=== PATIENT | female | born 1955 | race Caucasian/White ===

== ENCOUNTER 2016-10-31 18:13 | Emergency (ER) | payer OTHER ==
[~2016-10-31] VITALS: Ht 162.6 cm; Wt 72.7 kg
[~2016-10-31 18:13] MED LIST: ALBU8HFA IH; ATOR20TA65 PO; BENZ-26 PO; FLUO40CA PO; METF500T4 PO
[2016-10-31 18:26] LABS: GLUCOSE,POINT OF CARE 115 MG/DL (70-110)
[2016-10-31 20:07] VITALS: BP 120/95
[2016-10-31] MEDS ORDERED: DIAZEPAM 5 MG TABLET PO ONE (20:15)
[2016-10-31] MEDS ORDERED: DEXAMETHASONE SOD PHOS 4 MG/ML 5 ML VIAL IM ONE (20:15)
== END 2016-10-31 20:22 | disposition home or self-care (01) ==
LOC: EMS 18:19
DX: L50.9 Urticaria, unspecified (principal); F41.9 Anxiety disorder, unspecified; E11.42 Type 2 diabetes mellitus with diabetic polyneuropathy; F32.9 Major depressive disorder, single episode, unspecified; M19.90 Unspecified osteoarthritis, unspecified site; F17.210 Nicotine dependence, cigarettes, uncomplicated; I25.10 Atherosclerotic heart disease of native coronary artery without angina pectoris; E78.00 Pure hypercholesterolemia, unspecified
CPT/HCPCS: 82962; 96372; 99283; 99406; J1100

== ENCOUNTER 2016-11-24 20:57 | Emergency (ER) | payer OTHER ==
[~2016-11-24] VITALS: Ht 160 cm; Wt 63.0 kg
[2016-11-24 21:21] LABS: GLUCOSE,POINT OF CARE 105 MG/DL (70-110)
[2016-11-25 01:12] VITALS: BP 119/77
== END 2016-11-25 01:50 | disposition home or self-care (01) ==
LOC: EMS 20:58
DX: R05 Cough (principal); I25.10 Atherosclerotic heart disease of native coronary artery without angina pectoris; E78.00 Pure hypercholesterolemia, unspecified; E11.9 Type 2 diabetes mellitus without complications; F17.210 Nicotine dependence, cigarettes, uncomplicated
CPT/HCPCS: 71020; 82962; 99284

== ENCOUNTER 2017-02-23 11:54 | Emergency (ER) | payer OTHER ==
[~2017-02-23] VITALS: Ht 160 cm; Wt 65.9 kg
[~2017-02-23 11:54] MED LIST changes: -BENZ-26 PO; +DIAZ5 PO; -METF500T4 PO; +RANO500T3 PO
[2017-02-23] MEDS ORDERED: KETOROLAC TROMETHAMINE 60 MG/2 ML VIAL IM ONE (13:30)
[2017-02-23 14:30] VITALS: BP 125/78
== END 2017-02-23 14:44 | disposition home or self-care (01) ==
LOC: EMS 11:56
DX: S13.4XXA Sprain of ligaments of cervical spine, initial encounter (principal); S80.11XA Contusion of right lower leg, initial encounter; I25.10 Atherosclerotic heart disease of native coronary artery without angina pectoris; E11.9 Type 2 diabetes mellitus without complications; E78.00 Pure hypercholesterolemia, unspecified; F17.210 Nicotine dependence, cigarettes, uncomplicated; M19.90 Unspecified osteoarthritis, unspecified site; V03.19XA Pedestrian with other conveyance injured in collision with car, pick-up truck or van in traffic accident, initial encounter; Y93.89 Activity, other specified; Y92.89 Other specified places as the place of occurrence of the external cause; Y99.8 Other external cause status
CPT/HCPCS: 72040; 96372; 99284; J1885

== ENCOUNTER 2017-05-07 00:23 | Emergency (ER) | payer OTHER ==
[~2017-05-07] VITALS: Ht 160 cm; Wt 63.6 kg
[~2017-05-07 00:23] MED LIST changes: -DIAZ5 PO
[2017-05-07 00:42] LABS: GLUCOSE,POINT OF CARE 116 MG/DL (70-110)
[2017-05-07] MEDS ORDERED: KETOROLAC TROMETHAMINE 60 MG/2 ML VIAL IM ONE (03:15)
[2017-05-07 03:40] VITALS: BP 115/68
== END 2017-05-07 03:46 | disposition home or self-care (01) ==
LOC: EMS 00:24
DX: M54.42 Lumbago with sciatica, left side (principal); G89.29 Other chronic pain; F17.210 Nicotine dependence, cigarettes, uncomplicated; I25.10 Atherosclerotic heart disease of native coronary artery without angina pectoris; E11.9 Type 2 diabetes mellitus without complications; E78.00 Pure hypercholesterolemia, unspecified
CPT/HCPCS: 82962; 96372; 99283; 99406; J1885

== ENCOUNTER 2017-07-10 22:14 | Emergency (ER) | payer OTHER ==
[~2017-07-10] VITALS: Ht 160 cm; Wt 64.5 kg
[~2017-07-10 22:14] MED LIST changes: -ALBU8HFA IH
[2017-07-10] MEDS ORDERED: ACET1TAB12 PO (22:21)
[2017-07-10] MEDS ORDERED: DOXY100C PO (22:21)
[2017-07-10] MEDS ORDERED: ALBU8HFA IH (22:21)
[2017-07-10] MEDS ORDERED: LEVALBUTEROL HCL 1.25 MG/0.5 ML NEB SOLUTION NEB ONE (22:45)
[2017-07-10] MEDS ORDERED: DEXAMETHASONE SOD PHOS 4 MG/ML 5 ML VIAL IM ONE (22:45)
[2017-07-10] MEDS ORDERED: IPRATROPIUM BROMIDE 0.5 MG/2.5 ML NEB SOLUTION NEB ONE (22:45)
[2017-07-11] MEDS ORDERED: ALBUTEROL SULFATE 2.5 MG/0.5 ML NEB SOLUTION NEB ONE (00:30)
[2017-07-11] MEDS ORDERED: HYDROCODONE/ACETAMINOPHEN 5-325 MG TABLET PO ONE (00:30)
[2017-07-11 00:43] LABS: BASOPHILS # (AUTO) 0.03 K/uL (0.00-0.20); BASOPHILS % (AUTO) 0.4 % (0.0-2.0); EOSINOPHILS % (AUTO) 2.26 % (1.0-6.0); HEMATOCRIT 39.6 % (36-46); HEMOGLOBIN 13.3 g/dL (12.0-16.0); LYMPHOCYTES # (AUTO) 4.4 K/uL (1.0-4.8); LYMPHOCYTES % (AUTO) 50.5 % (22.0-44.0); MEAN CORPUSCULAR HEMOGLOBIN 32.6 pg (26.0-34.0); MEAN CORPUSCULAR HGB CONC 33.5 G/dL (31.0-37.0); MEAN CORPUSCULAR VOLUME 97 fL (80-100); MONOCYTES # (AUTO) 0.5 K/uL (0.1-1.0); MONOCYTES % (AUTO) 5.2 % (2.0-9.0); NEUTROPHILS # (AUTO) 3.6 K/uL (1.8-7.7); NEUTROPHILS % (AUTO) 41.7 % (40.0-70.0); PLATELET COUNT (AUTO) 226 K/uL (150-450); RED BLOOD CELL COUNT(AUTO) 4.07 MIL/uL (4.00-5.20); RED CELL DISTRIBUTION WIDTH 13.8 % (11.5-14.5); WHITE BLOOD COUNT (AUTO) 8.7 K/uL (4.5-11.0)
[2017-07-11] MEDS ORDERED: 0.9% SODIUM CHLORIDE 5 ML NEB SOLUTION NEB ONE (00:49)
[2017-07-11 00:50] LABS: ANION GAP 9 mmol/L (8-16); CALCIUM, TOTAL 9.1 mg/dL (8.8-10.5); CARBON DIOXIDE 27 mmol/L (22-29); CHLORIDE 103 mmol/L (98-107); CREATININE 0.81 mg/dL (0.60-1.30); GLOMERULAR FILTR. RATE CALC > 60 mL/min (>60); POTASSIUM 3.7 mmol/L (3.5-5.1); SODIUM SERUM 139 mmol/L (136-145); UREA NITROGEN, BLOOD 14 mg/dL (7-18)
[2017-07-11 00:57] LABS: ALANINE AMINOTRANSFERASE 41 U/L (12-78); ALBUMIN 3.7 g/dL (3.4-5.0); ASPARTATE AMINOTRANSFERASE 19 U/L (15-37); BILIRUBIN,TOTAL 0.3 mg/dL (0.1-1.0); TOTAL PROTEIN, SERUM 6.9 g/dL (6.4-8.2)
[2017-07-11 03:30] VITALS: BP 114/76
[2017-07-12] MEDS ORDERED: DOXY50CA7 PO (22:35)
[2017-07-12] MEDS ORDERED: [UNRECOGNIZED DRUG - CODE] PO (22:35)
[2017-07-12] MEDS ORDERED: PRED20 PO (22:35)
== END 2017-07-11 03:21 | disposition home or self-care (01) ==
LOC: EMS 22:15
DX: J44.9 Chronic obstructive pulmonary disease, unspecified (principal); J00 Acute nasopharyngitis [common cold]; I25.10 Atherosclerotic heart disease of native coronary artery without angina pectoris; E11.9 Type 2 diabetes mellitus without complications; E78.00 Pure hypercholesterolemia, unspecified; F17.210 Nicotine dependence, cigarettes, uncomplicated
CPT/HCPCS: 36415; 71010; 80053; 84484; 85025; 93005; 94640 ×2; 96372; 99285; J1100; J7613; Z7610

== ENCOUNTER 2017-07-12 22:26 | Emergency (ER) | payer OTHER ==
[~2017-07-12] VITALS: Ht 160 cm; Wt 63.2 kg
[~2017-07-12 22:26] MED LIST changes: +ACET1TAB12 PO; +ALBU8HFA IH; +DOXY100C PO
[2017-07-12] MEDS ORDERED: DOXY50CA7 PO (22:35)
[2017-07-12] MEDS ORDERED: PRED20 PO (22:35)
[2017-07-12] MEDS ORDERED: [UNRECOGNIZED DRUG - CODE] PO (22:35)
[2017-07-12 22:54] LABS: BASOPHILS # (AUTO) 0.02 K/uL (0.00-0.20); BASOPHILS % (AUTO) 0.2 % (0.0-2.0); EOSINOPHILS # (AUTO) 0.03 K/uL (0.00-0.70); EOSINOPHILS % (AUTO) 0.23 % (1.0-6.0); HEMATOCRIT 35.8 % (36-46); HEMOGLOBIN 12.1 g/dL (12.0-16.0); LYMPHOCYTES # (AUTO) 4.2 K/uL (1.0-4.8); MEAN CORPUSCULAR HEMOGLOBIN 32.6 pg (26.0-34.0); MEAN CORPUSCULAR HGB CONC 33.7 G/dL (31.0-37.0); MEAN CORPUSCULAR VOLUME 97 fL (80-100); MONOCYTES # (AUTO) 0.5 K/uL (0.1-1.0); MONOCYTES % (AUTO) 4.3 % (2.0-9.0); NEUTROPHILS # (AUTO) 6.6 K/uL (1.8-7.7); NEUTROPHILS % (AUTO) 58.3 % (40.0-70.0); PLATELET COUNT (AUTO) 220 K/uL (150-450); RED BLOOD CELL COUNT(AUTO) 3.69 MIL/uL (4.00-5.20); RED CELL DISTRIBUTION WIDTH 13.9 % (11.5-14.5); WHITE BLOOD COUNT (AUTO) 11.4 K/uL (4.5-11.0)
[2017-07-12 23:04] LABS: ANION GAP 8 mmol/L (8-16); CALCIUM, TOTAL 8.8 mg/dL (8.8-10.5); CARBON DIOXIDE 26 mmol/L (22-29); CHLORIDE 103 mmol/L (98-107); CREATININE 0.81 mg/dL (0.60-1.30); GLOMERULAR FILTR. RATE CALC > 60 mL/min (>60); POTASSIUM 3.4 mmol/L (3.5-5.1); SODIUM SERUM 137 mmol/L (136-145); UREA NITROGEN, BLOOD 15 mg/dL (7-18)
[2017-07-12 23:07] LABS: PROTHROMBIN TIME 10.4 SEC (9.4-11.6)
[2017-07-12 23:13] LABS: APPEARANCE,URINE CLEAR (CLEAR); GLUCOSE, URINE (UA) NEGATIVE (NEGATIVE); KETONES,URINE NEGATIVE (NEGATIVE); LEUKOCYTE ESTERASE ,URINE NEGATIVE (NEGATIVE); OCCULT BLOOD,URINE SMALL (NEGATIVE); PH,URINE 6.5 (5.0-8.0); PROTEIN,URINE NEGATIVE (NEGATIVE)
[2017-07-12 23:14] LABS: ADD UA MICROSCOPIC YES
[2017-07-12 23:17] LABS: B-TYPE NATRIURETIC PEPTIDE 23 pg/mL (0-100)
[2017-07-12 23:28] LABS: ALANINE AMINOTRANSFERASE 53 U/L (12-78); ALBUMIN 3.7 g/dL (3.4-5.0); ASPARTATE AMINOTRANSFERASE 43 U/L (15-37); BILIRUBIN,TOTAL 0.4 mg/dL (0.1-1.0); CREATINE KINASE MB 1.8 ng/mL (0-5); CREATINE KINASE, TOTAL 111 U/L (26-192); TOTAL PROTEIN, SERUM 6.8 g/dL (6.4-8.2)
[2017-07-12 23:34] LABS: WBC,URINE 0-2 /HPF (0-5)
[2017-07-12 23:35] LABS: SQUAMOUS EPITHELIAL CELL,UR Rare /LPF (None Seen)
[2017-07-13 00:34] VITALS: BP 95/65
== END 2017-07-13 00:36 | disposition home or self-care (01) ==
LOC: EMS 22:28
DX: R07.9 Chest pain, unspecified (principal); E11.9 Type 2 diabetes mellitus without complications; E78.00 Pure hypercholesterolemia, unspecified; F32.9 Major depressive disorder, single episode, unspecified; F41.9 Anxiety disorder, unspecified; I25.10 Atherosclerotic heart disease of native coronary artery without angina pectoris; F17.210 Nicotine dependence, cigarettes, uncomplicated; Z90.49 Acquired absence of other specified parts of digestive tract
CPT/HCPCS: 93005; 99285

== ENCOUNTER 2017-11-11 18:05 | Emergency (ER) | payer OTHER ==
[~2017-11-11] VITALS: Ht 160 cm; Wt 63.6 kg
[~2017-11-11 18:05] MED LIST changes: -ACET1TAB12 PO; -DOXY100C PO; +DOXY50CA7 PO; +PRED20 PO; +[UNRECOGNIZED DRUG - CODE] PO
[2017-11-11] MEDS ORDERED: MONT10TA21 PO (18:10)
[2017-11-11 18:17] LABS: GLUCOSE,POINT OF CARE 218 MG/DL (70-110)
[2017-11-11] MEDS ORDERED: ASPIRIN 325 MG TABLET PO ONE (18:45)
[2017-11-11 19:18] LABS: BASOPHILS % (AUTO) 0.1 % (0.0-2.0); EOSINOPHILS % (AUTO) 0 % (1.0-6.0); HEMATOCRIT 38.4 % (36-46); LYMPHOCYTES # (AUTO) 2.8 K/uL (1.0-4.8); LYMPHOCYTES % (AUTO) 24.3 % (22.0-44.0); MEAN CORPUSCULAR HEMOGLOBIN 32.1 pg (26.0-34.0); MEAN CORPUSCULAR HGB CONC 33.9 G/dL (31.0-37.0); MEAN CORPUSCULAR VOLUME 95 fL (80-100); MONOCYTES # (AUTO) 0.7 K/uL (0.1-1.0); MONOCYTES % (AUTO) 6.3 % (2.0-9.0); NEUTROPHILS # (AUTO) 7.9 K/uL (1.8-7.7); NEUTROPHILS % (AUTO) 69.3 % (40.0-70.0); PLATELET COUNT (AUTO) 237 K/uL (150-450); RED BLOOD CELL COUNT(AUTO) 4.06 MIL/uL (4.00-5.20); RED CELL DISTRIBUTION WIDTH 13.1 % (11.5-14.5)
[2017-11-11 19:29] LABS: ANION GAP 10 mmol/L (8-16); CALCIUM, TOTAL 8.9 mg/dL (8.8-10.5); CARBON DIOXIDE 25 mmol/L (22-29); CHLORIDE 105 mmol/L (98-107); CREATININE 0.78 mg/dL (0.60-1.30); GLOMERULAR FILTR. RATE CALC > 60 mL/min (>60); GLUCOSE,RANDOM 191 mg/dL (70-110); POTASSIUM 3.6 mmol/L (3.5-5.1); SODIUM SERUM 140 mmol/L (136-145); UREA NITROGEN, BLOOD 14 mg/dL (7-18)
[2017-11-11 19:30] LABS: INR 0.9 (0.9-1.1); PROTHROMBIN TIME 9.9 SEC (9.4-11.6)
[2017-11-11 19:34] LABS: ALANINE AMINOTRANSFERASE 42 U/L (12-78); ALBUMIN 3.7 g/dL (3.4-5.0); ALKALINE PHOSPHATASE 68 U/L (46-116); ASPARTATE AMINOTRANSFERASE 14 U/L (15-37); BILIRUBIN,TOTAL 0.5 mg/dL (0.1-1.0); CREATINE KINASE, TOTAL 70 U/L (26-192); TOTAL PROTEIN, SERUM 6.9 g/dL (6.4-8.2)
[2017-11-11 19:36] LABS: B-TYPE NATRIURETIC PEPTIDE 17 pg/mL (0-100)
[2017-11-11 20:06] VITALS: BP 106/61
== END 2017-11-11 20:10 | disposition home or self-care (01) ==
LOC: EMS 18:06
DX: R07.89 Other chest pain (principal); E11.9 Type 2 diabetes mellitus without complications; I25.10 Atherosclerotic heart disease of native coronary artery without angina pectoris; E78.00 Pure hypercholesterolemia, unspecified; F17.210 Nicotine dependence, cigarettes, uncomplicated
CPT/HCPCS: 71046; 82962; 93005; 99285; 99406

== ENCOUNTER 2018-02-13 20:26 | Emergency (ER) | payer OTHER ==
[~2018-02-13] VITALS: Ht 160 cm; Wt 63.2 kg
[~2018-02-13 20:26] MED LIST changes: -FLUO40CA PO; +MONT10TA21 PO; -[UNRECOGNIZED DRUG - CODE] PO
[2018-02-13] MEDS ORDERED: CITA-106 PO (20:45)
[2018-02-13 20:48] LABS: GLUCOSE,POINT OF CARE 108 MG/DL (70-110)
[2018-02-13 21:10] LABS: BASOPHILS % (AUTO) 0.6 % (0.0-2.0); EOSINOPHILS % (AUTO) 1.6 % (1.0-6.0); HEMATOCRIT 37.3 % (36-46); LYMPHOCYTES % (AUTO) 48.4 % (22.0-44.0); MEAN CORPUSCULAR HEMOGLOBIN 33.4 pg (26.0-34.0); MEAN CORPUSCULAR VOLUME 96 fL (80-100); MONOCYTES # (AUTO) 0.5 K/uL (0.1-1.0); MONOCYTES % (AUTO) 6.6 % (2.0-9.0); NEUTROPHILS # (AUTO) 3.5 K/uL (1.8-7.7); NEUTROPHILS % (AUTO) 42.8 % (40.0-70.0); PLATELET COUNT (AUTO) 214 K/uL (150-450)
[2018-02-13 21:13] LABS: ANION GAP 8 mmol/L (8-16); CALCIUM, TOTAL 8.4 mg/dL (8.8-10.5); CARBON DIOXIDE 29 mmol/L (22-29); CHLORIDE 104 mmol/L (98-107); GLOMERULAR FILTR. RATE CALC > 60 mL/min (>60); GLUCOSE,RANDOM 97 mg/dL (70-110); POTASSIUM 3.8 mmol/L (3.5-5.1); SODIUM SERUM 141 mmol/L (136-145); UREA NITROGEN, BLOOD 10 mg/dL (7-18)
[2018-02-13 21:20] LABS: ALANINE AMINOTRANSFERASE 45 U/L (12-78); ALBUMIN 3.5 g/dL (3.4-5.0); ALKALINE PHOSPHATASE 71 U/L (46-116); ASPARTATE AMINOTRANSFERASE 25 U/L (15-37); BILIRUBIN,TOTAL 0.3 mg/dL (0.1-1.0); TOTAL PROTEIN, SERUM 6.5 g/dL (6.4-8.2)
[2018-02-14] MEDS ORDERED: DIAZEPAM 5 MG TABLET PO ONE (00:45)
[2018-02-14 02:56] VITALS: BP 104/68
== END 2018-02-14 02:58 | disposition home or self-care (01) ==
LOC: EMS 20:26
DX: R42 Dizziness and giddiness (principal); R11.0 Nausea; E11.9 Type 2 diabetes mellitus without complications; I10 Essential (primary) hypertension; E78.00 Pure hypercholesterolemia, unspecified; F41.9 Anxiety disorder, unspecified; M19.90 Unspecified osteoarthritis, unspecified site; F17.210 Nicotine dependence, cigarettes, uncomplicated; F32.9 Major depressive disorder, single episode, unspecified; Z79.899 Other long term (current) drug therapy
CPT/HCPCS: 70450; 93005; 99285

== ENCOUNTER 2018-07-22 04:17 | Emergency (ER) | payer OTHER ==
[~2018-07-22] VITALS: Ht 160 cm; Wt 65.9 kg
[~2018-07-22 04:17] MED LIST changes: +CITA-106 PO; -DOXY50CA7 PO; -PRED20 PO
[2018-07-22 04:21] VITALS: BP 143/99
[2018-07-22 05:04] LABS: APPEARANCE,URINE CLEAR (CLEAR); BILIRUBIN,URINE NEGATIVE (NEGATIVE); GLUCOSE, URINE (UA) NEGATIVE (NEGATIVE); KETONES,URINE NEGATIVE (NEGATIVE); LEUKOCYTE ESTERASE ,URINE NEGATIVE (NEGATIVE); NITRATE,URINE NEGATIVE (NEGATIVE); OCCULT BLOOD,URINE MODERATE (NEGATIVE); PH,URINE 6.5 (5.0-8.0); PROTEIN,URINE NEGATIVE (NEGATIVE); UROBILINOGEN,URINE 0.2 mg/dL (<=1.0)
[2018-07-22 05:26] LABS: BACTERIA,URINE None Seen /HPF (None Seen); WBC,URINE 0-2 /HPF (0-5)
[2018-07-22 05:27] LABS: SQUAMOUS EPITHELIAL CELL,UR Moderate /LPF (None Seen)
== END 2018-07-22 06:31 | disposition home or self-care (01) ==
LOC: EMS 04:18
DX: N39.0 Urinary tract infection, site not specified (principal); E11.9 Type 2 diabetes mellitus without complications; E78.00 Pure hypercholesterolemia, unspecified; J40 Bronchitis, not specified as acute or chronic; I25.10 Atherosclerotic heart disease of native coronary artery without angina pectoris; F41.9 Anxiety disorder, unspecified; F17.210 Nicotine dependence, cigarettes, uncomplicated; Z79.899 Other long term (current) drug therapy; Z88.5 Allergy status to narcotic agent; Z88.1 Allergy status to other antibiotic agents

== ENCOUNTER 2018-11-13 23:54 | Emergency (ER) | payer OTHER ==
[~2018-11-13] VITALS: Ht 160 cm; Wt 65.5 kg
[2018-11-14] MEDS ORDERED: GABA-531 PO (00:18)
[2018-11-14 00:21] LABS: GLUCOSE,POINT OF CARE 138 MG/DL (70-110)
[2018-11-14 02:29] VITALS: BP 95/61
[2018-11-14] MEDS ORDERED: KETOROLAC TROMETHAMINE 60 MG/2 ML VIAL IM ONE (02:45)
== END 2018-11-14 02:57 | disposition home or self-care (01) ==
LOC: EMS 23:58
DX: M54.5 Low back pain (principal); I25.10 Atherosclerotic heart disease of native coronary artery without angina pectoris; E11.9 Type 2 diabetes mellitus without complications; E78.00 Pure hypercholesterolemia, unspecified; F41.9 Anxiety disorder, unspecified; M19.90 Unspecified osteoarthritis, unspecified site; F17.210 Nicotine dependence, cigarettes, uncomplicated; Z90.49 Acquired absence of other specified parts of digestive tract; Z88.5 Allergy status to narcotic agent; Z88.1 Allergy status to other antibiotic agents
CPT/HCPCS: 82962; 96372; 99283; J1885

== ENCOUNTER 2019-02-08 22:41 | Inpatient (IN) | payer OTHER ==
[~2019-02-08] VITALS: Ht 160 cm; Wt 66.3 kg
[~2019-02-08 22:41] MED LIST changes: +GABA-531 PO; -RANO500T3 PO
[2019-02-08 22:54] LABS: GLUCOSE,POINT OF CARE 139 MG/DL (70-110)
[2019-02-08 23:28] LABS: BASOPHILS % (AUTO) 0.3 % (0.0-2.0); HEMATOCRIT 38.5 % (36-46); HEMOGLOBIN 13.1 g/dL (12.0-16.0); LYMPHOCYTES # (AUTO) 4.3 K/uL (1.0-4.8); LYMPHOCYTES % (AUTO) 43.8 % (22.0-44.0); MEAN CORPUSCULAR HEMOGLOBIN 33.4 pg (26.0-34.0); MEAN CORPUSCULAR HGB CONC 34.1 G/dL (31.0-37.0); MEAN CORPUSCULAR VOLUME 98 fL (80-100); MONOCYTES # (AUTO) 0.6 K/uL (0.1-1.0); MONOCYTES % (AUTO) 5.8 % (2.0-9.0); NEUTROPHILS # (AUTO) 4.7 K/uL (1.8-7.7); NEUTROPHILS % (AUTO) 48.1 % (40.0-70.0); PLATELET COUNT (AUTO) 237 K/uL (150-450); RED BLOOD CELL COUNT(AUTO) 3.93 MIL/uL (4.00-5.20); RED CELL DISTRIBUTION WIDTH 13.5 % (11.5-14.5)
[2019-02-08 23:39] LABS: ANION GAP 7 mmol/L (8-16); CALCIUM, TOTAL 9.5 mg/dL (8.8-10.5); CARBON DIOXIDE 28 mmol/L (22-29); CHLORIDE 104 mmol/L (98-107); CREATININE 0.74 mg/dL (0.60-1.30); GLOMERULAR FILTR. RATE CALC > 60 mL/min (>60); GLUCOSE,RANDOM 138 mg/dL (70-110); POTASSIUM 3.7 mmol/L (3.5-5.1); SODIUM SERUM 139 mmol/L (136-145); UREA NITROGEN, BLOOD 14 mg/dL (7-18)
[2019-02-08 23:46] LABS: ALANINE AMINOTRANSFERASE 33 U/L (12-78); ALBUMIN 3.4 g/dL (3.4-5.0); ALKALINE PHOSPHATASE 74 U/L (46-116); ASPARTATE AMINOTRANSFERASE 23 U/L (15-37); BILIRUBIN,TOTAL 0.3 mg/dL (0.1-1.0); TOTAL PROTEIN, SERUM 6.8 g/dL (6.4-8.2)
[2019-02-09] MEDS ORDERED: ONDANSETRON HCL 4 MG/2 ML VIAL IVP ONE (01:15)
[2019-02-09] MEDS ORDERED: MORPHINE SULFATE 2 MG/ML SYRINGE IVP ONE (01:15)
[2019-02-09] MEDS ORDERED: ASPIRIN 325 MG TABLET PO ONE (01:15)
[2019-02-09] MEDS ORDERED: MORPHINE SULFATE 4 MG/ML SYRINGE IVP ONE (01:30)
[2019-02-09] MEDS ORDERED: NITROGLYCERIN 2% (1 GM=INCH) PACKET TP ONE (04:00)
[2019-02-09] MEDS ORDERED: IPRATROPIUM BROMIDE 0.5 MG/2.5 ML NEB SOLUTION NEB PRN (07:00)
[2019-02-09] MEDS ORDERED: ONDANSETRON HCL 4 MG/2 ML VIAL IVP PRN (07:00)
[2019-02-09] MEDS ORDERED: 0.9% SODIUM CHLORIDE 10 ML SYRINGE IVP PRN (07:00)
[2019-02-09] MEDS ORDERED: INSULIN LISPRO 100 UNITS/ML SQ PRN (07:00)
[2019-02-09] MEDS ORDERED: ALBUTEROL SULFATE 2.5 MG/0.5 ML NEB SOLUTION NEB PRN (07:00)
[2019-02-09] MEDS ORDERED: DEXTROSE 50%-WATER 25 GM/50 ML SYRINGE IVP PRN (07:00)
[2019-02-09] MEDS ORDERED: ZOLPIDEM TARTRATE 5 MG TABLET PO PRN (07:00)
[2019-02-09] MEDS: ALBUTEROL SULFATE 2.5 MG/0.5 ML NEB SOLUTION NEB SCH ×2 (08:31→20:31)
[2019-02-09] MEDS: IPRATROPIUM BROMIDE 0.5 MG/2.5 ML NEB SOLUTION NEB SCH ×2 (08:31→20:31)
[2019-02-09] MEDS: CITALOPRAM HYDROBROMIDE 20 MG TABLET PO SCH (08:44)
[2019-02-09] MEDS: HEPARIN SODIUM,PORCINE 5,000 UNITS/ML VIAL SQ SCH ×2 (08:44→18:24)
[2019-02-09] MEDS: MONTELUKAST SODIUM 10 MG TABLET PO SCH (08:45)
[2019-02-09] MEDS: PANTOPRAZOLE SODIUM 40 MG DR TABLET PO SCH (08:45)
[2019-02-09 13:24] LABS: GLUCOSE,POINT OF CARE 127 MG/DL (70-110)
[2019-02-09 15:00] VITALS: BP 110/53
[2019-02-09 19:30] VITALS: BP 98/62
[2019-02-09 19:55] LABS: GLUCOMETER DEV NAME(LOC) 5S.1; GLUCOSE,POINT OF CARE 151 MG/DL (70-110)
[2019-02-09] MEDS ORDERED: ATORVASTATIN CALCIUM 20 MG TABLET PO SCH (21:00)
[2019-02-09 23:29] VITALS: BP 99/70
[2019-02-10] MEDS: ALBUTEROL SULFATE 2.5 MG/0.5 ML NEB SOLUTION NEB SCH ×3 (02:00→13:32)
[2019-02-10] MEDS: IPRATROPIUM BROMIDE 0.5 MG/2.5 ML NEB SOLUTION NEB SCH ×3 (02:00→13:32)
[2019-02-10] MEDS: HEPARIN SODIUM,PORCINE 5,000 UNITS/ML VIAL SQ SCH ×3 (02:13→16:00)
[2019-02-10 04:41] VITALS: BP 97/61
[2019-02-10] MEDS: PANTOPRAZOLE SODIUM 40 MG DR TABLET PO SCH (07:54)
[2019-02-10] MEDS: CITALOPRAM HYDROBROMIDE 20 MG TABLET PO SCH (07:54)
[2019-02-10] MEDS: MONTELUKAST SODIUM 10 MG TABLET PO SCH (07:54)
[2019-02-10 08:10] VITALS: BP 97/64
[2019-02-10 12:11] VITALS: BP 93/66
[2019-02-10 14:28] LABS: BASOPHILS % (AUTO) 0.4 % (0.0-2.0); EOSINOPHILS % (AUTO) 0.7 % (1.0-6.0); HEMATOCRIT 37.8 % (36-46); HEMOGLOBIN 12.6 g/dL (12.0-16.0); MEAN CORPUSCULAR HEMOGLOBIN 32.9 pg (26.0-34.0); MEAN CORPUSCULAR HGB CONC 33.3 G/dL (31.0-37.0); MEAN CORPUSCULAR VOLUME 99 fL (80-100); MONOCYTES # (AUTO) 0.7 K/uL (0.1-1.0); MONOCYTES % (AUTO) 6.6 % (2.0-9.0); NEUTROPHILS # (AUTO) 6.5 K/uL (1.8-7.7); NEUTROPHILS % (AUTO) 57.3 % (40.0-70.0); PLATELET COUNT (AUTO) 218 K/uL (150-450); RED BLOOD CELL COUNT(AUTO) 3.83 MIL/uL (4.00-5.20); RED CELL DISTRIBUTION WIDTH 13.6 % (11.5-14.5)
[2019-02-10 14:40] LABS: ANION GAP 8 mmol/L (8-16); CARBON DIOXIDE 28 mmol/L (22-29); CHLORIDE 104 mmol/L (98-107); CREATININE 0.88 mg/dL (0.60-1.30); GLUCOSE,RANDOM 116 mg/dL (70-110); POTASSIUM 3.8 mmol/L (3.5-5.1); SODIUM SERUM 140 mmol/L (136-145); UREA NITROGEN, BLOOD 16 mg/dL (7-18)
[2019-02-10 14:41] LABS: CALCIUM, TOTAL 8.8 mg/dL (8.8-10.5); GLOMERULAR FILTR. RATE CALC > 60 mL/min (>60)
[2019-02-10 14:46] LABS: ALANINE AMINOTRANSFERASE 39 U/L (12-78); ALBUMIN 3.2 g/dL (3.4-5.0); ALKALINE PHOSPHATASE 71 U/L (46-116); ASPARTATE AMINOTRANSFERASE 20 U/L (15-37); BILIRUBIN,TOTAL 0.4 mg/dL (0.1-1.0); TOTAL PROTEIN, SERUM 6.3 g/dL (6.4-8.2)
[2019-02-10 15:15] VITALS: BP 111/70
[2019-02-10 19:50] LABS: GLUCOMETER DEV NAME(LOC) 5N.1; GLUCOSE,POINT OF CARE 149 MG/DL (70-110)
[2019-02-10 19:50] LABS: GLUCOMETER DEV NAME(LOC) 5N.1; GLUCOSE,POINT OF CARE 128 MG/DL (70-110)
[2019-02-10 22:55] LABS: GLUCOMETER DEV NAME(LOC) 5S.1; GLUCOSE,POINT OF CARE 126 MG/DL (70-110)
[2019-02-10 22:55] LABS: GLUCOMETER DEV NAME(LOC) 5S.2A; GLUCOSE,POINT OF CARE 115 MG/DL (70-110)
== END 2019-02-10 18:30 | disposition home or self-care (01) | DRG 198 ==
LOC: EMS 22:42 → 5S 02-09 12:30 → EMS 02-09 14:12
PROVIDERS: ADMIT Internal Medicine; ATTEND Internal Medicine
DX: I25.119 Atherosclerotic heart disease of native coronary artery with unspecified angina pectoris (principal); E11.9 Type 2 diabetes mellitus without complications; E78.00 Pure hypercholesterolemia, unspecified; F32.9 Major depressive disorder, single episode, unspecified; J40 Bronchitis, not specified as acute or chronic; J44.9 Chronic obstructive pulmonary disease, unspecified; M19.90 Unspecified osteoarthritis, unspecified site; F17.210 Nicotine dependence, cigarettes, uncomplicated; Z90.49 Acquired absence of other specified parts of digestive tract; F41.9 Anxiety disorder, unspecified; Z83.3 Family history of diabetes mellitus; Z82.49 Family history of ischemic heart disease and other diseases of the circulatory system; Z88.6 Allergy status to analgesic agent; Z88.1 Allergy status to other antibiotic agents
CPT/HCPCS: 93005; 93306; 94640; G0378; J1644; J2270; J2405

== ENCOUNTER 2019-04-29 19:08 | Emergency (ER) | payer SELFPAY ==
[~2019-04-29] VITALS: Ht 160 cm; Wt 63.6 kg
[~2019-04-29 19:08] MED LIST changes: -GABA-531 PO
[2019-04-29 19:41] LABS: GLUCOSE,POINT OF CARE 142 MG/DL (70-110)
[2019-04-29] MEDS ORDERED: FLUO-125 PO (20:35)
[2019-04-29] MEDS ORDERED: CITA10TA68 PO (20:35)
[2019-04-29] MEDS ORDERED: AMIT25TA9 PO (20:35)
[2019-04-29 21:53] LABS: BASOPHILS % (AUTO) 0.4 % (0.0-2.0); HEMATOCRIT 39.5 % (36-46); HEMOGLOBIN 13.5 g/dL (12.0-16.0); LYMPHOCYTES # (AUTO) 3.8 K/uL (1.0-4.8); LYMPHOCYTES % (AUTO) 46.5 % (22.0-44.0); MEAN CORPUSCULAR HEMOGLOBIN 33.4 pg (26.0-34.0); MEAN CORPUSCULAR HGB CONC 34.2 G/dL (31.0-37.0); MEAN CORPUSCULAR VOLUME 98 fL (80-100); MONOCYTES # (AUTO) 0.6 K/uL (0.1-1.0); MONOCYTES % (AUTO) 7.1 % (2.0-9.0); NEUTROPHILS # (AUTO) 3.6 K/uL (1.8-7.7); PLATELET COUNT (AUTO) 253 K/uL (150-450); RED BLOOD CELL COUNT(AUTO) 4.05 MIL/uL (4.00-5.20); RED CELL DISTRIBUTION WIDTH 13.2 % (11.5-14.5)
[2019-04-29 21:59] LABS: ANION GAP 14 mmol/L (8-16); CALCIUM, TOTAL 9.3 mg/dL (8.8-10.5); CARBON DIOXIDE 26 mmol/L (22-29); CHLORIDE 103 mmol/L (98-107); GLOMERULAR FILTR. RATE CALC > 60 mL/min (>60); GLUCOSE,RANDOM 108 mg/dL (70-110); SODIUM SERUM 143 mmol/L (136-145); UREA NITROGEN, BLOOD 11 mg/dL (7-18)
[2019-04-29 22:01] LABS: APPEARANCE,URINE CLEAR (CLEAR); BILIRUBIN,URINE NEGATIVE (NEGATIVE); GLUCOSE, URINE (UA) NEGATIVE (NEGATIVE); KETONES,URINE NEGATIVE (NEGATIVE); LEUKOCYTE ESTERASE ,URINE TRACE (NEGATIVE); NITRATE,URINE NEGATIVE (NEGATIVE); OCCULT BLOOD,URINE SMALL (NEGATIVE); PROTEIN,URINE NEGATIVE (NEGATIVE); UROBILINOGEN,URINE 0.2 mg/dL (<=1.0)
[2019-04-29 22:06] LABS: ALANINE AMINOTRANSFERASE 33 U/L (12-78); ALBUMIN 3.8 g/dL (3.4-5.0); ALKALINE PHOSPHATASE 77 U/L (46-116); ASPARTATE AMINOTRANSFERASE 23 U/L (15-37); BILIRUBIN,TOTAL 0.6 mg/dL (0.1-1.0)
[2019-04-29 22:10] LABS: INR 0.9 (0.9-1.1); PROTHROMBIN TIME 9.5 SEC (9.4-11.6)
[2019-04-29 22:11] LABS: BACTERIA,URINE Few /HPF (None Seen); RBC,URINE 0-2 /HPF (0-2); SQUAMOUS EPITHELIAL CELL,UR Few /LPF (None Seen)
[2019-04-29 22:14] LABS: B-TYPE NATRIURETIC PEPTIDE < 5 pg/mL (0-100)
[2019-04-30 02:24] VITALS: BP 109/68
== END 2019-04-30 02:27 | disposition home or self-care (01) ==
LOC: EMS 19:10
DX: R07.9 Chest pain, unspecified (principal); R06.02 Shortness of breath; E78.00 Pure hypercholesterolemia, unspecified; E11.9 Type 2 diabetes mellitus without complications; I25.10 Atherosclerotic heart disease of native coronary artery without angina pectoris; J44.9 Chronic obstructive pulmonary disease, unspecified; F32.9 Major depressive disorder, single episode, unspecified; F41.9 Anxiety disorder, unspecified; F17.210 Nicotine dependence, cigarettes, uncomplicated; Z88.5 Allergy status to narcotic agent; Z88.1 Allergy status to other antibiotic agents; Z79.899 Other long term (current) drug therapy
CPT/HCPCS: 93005; 99406

== ENCOUNTER 2019-10-24 09:27 | Emergency (ER) | payer OTHER ==
[~2019-10-24] VITALS: Ht 160 cm; Wt 64.5 kg
[~2019-10-24 09:27] MED LIST changes: +AMIT25TA9 PO; +CITA10TA68 PO; +FLUO10CA23 PO
[2019-10-24] MEDS ORDERED: OMEP20CA12 PO (09:38)
[2019-10-24] MEDS ORDERED: METF-960 PO (09:38)
[2019-10-24] MEDS ORDERED: RANO500T3 PO (09:38)
[2019-10-24 11:19] VITALS: BP 110/77
== END 2019-10-24 11:22 | disposition home or self-care (01) ==
LOC: EMS 09:30
DX: R05 Cough (principal); F41.9 Anxiety disorder, unspecified; I25.10 Atherosclerotic heart disease of native coronary artery without angina pectoris; J44.9 Chronic obstructive pulmonary disease, unspecified; F32.9 Major depressive disorder, single episode, unspecified; E11.9 Type 2 diabetes mellitus without complications; E78.00 Pure hypercholesterolemia, unspecified; F17.210 Nicotine dependence, cigarettes, uncomplicated; Z88.5 Allergy status to narcotic agent; Z88.1 Allergy status to other antibiotic agents; Z79.84 Long term (current) use of oral hypoglycemic drugs; Z03.818 Encounter for observation for suspected exposure to other biological agents ruled out
CPT/HCPCS: 87635

== ENCOUNTER 2019-12-09 14:08 | Emergency (ER) | payer OTHER ==
[~2019-12-09] VITALS: Ht 160 cm; Wt 63.6 kg
[~2019-12-09 14:08] MED LIST changes: -CITA-106 PO; +CITA-144 PO; -CITA10TA68 PO; +CITA10TA99 PO; +METF-960 PO; +OMEP20CA12 PO; +RANO500T3 PO
[2019-12-09] MEDS ORDERED: KETOROLAC TROMETHAMINE 30 MG/ML VIAL IM ONE (14:45)
[2019-12-09] MEDS ORDERED: CYCLOBENZAPRINE HCL 10 MG TABLET PO ONE (14:45)
[2019-12-09] MEDS ORDERED: LIDOCAINE 5% TRANSDERMAL PATCH TD ONE (14:45)
[2019-12-09 14:53] LABS: GLUCOSE,POINT OF CARE 178 MG/DL (70-110)
[2019-12-09 16:19] VITALS: BP 123/76
== END 2019-12-09 16:29 | disposition home or self-care (01) ==
LOC: EMS 14:14
DX: M54.42 Lumbago with sciatica, left side (principal); I25.10 Atherosclerotic heart disease of native coronary artery without angina pectoris; F41.9 Anxiety disorder, unspecified; J44.9 Chronic obstructive pulmonary disease, unspecified; F32.9 Major depressive disorder, single episode, unspecified; E11.9 Type 2 diabetes mellitus without complications; E78.00 Pure hypercholesterolemia, unspecified; F17.210 Nicotine dependence, cigarettes, uncomplicated; Z88.5 Allergy status to narcotic agent; Z90.89 Acquired absence of other organs
CPT/HCPCS: 82962; 96372; 99283; J1885

== ENCOUNTER 2020-02-07 16:58 | Emergency (ER) | payer OTHER ==
[~2020-02-07] VITALS: Ht 167.6 cm; Wt 77.3 kg
[~2020-02-07 16:58] MED LIST changes: -AMIT25TA9 PO; -FLUO10CA23 PO; -METF-960 PO; -RANO500T3 PO
[2020-02-07 17:59] LABS: BASOPHILS % (AUTO) 0.7 % (0.0-2.0); EOSINOPHILS % (AUTO) 0.2 % (1.0-6.0); HEMOGLOBIN 13.7 g/dL (12.0-16.0); LYMPHOCYTES # (AUTO) 1.1 K/uL (1.0-4.8); LYMPHOCYTES % (AUTO) 13.7 % (22.0-44.0); MEAN CORPUSCULAR HEMOGLOBIN 32.9 pg (26.0-34.0); MEAN CORPUSCULAR HGB CONC 34.2 G/dL (31.0-37.0); MEAN CORPUSCULAR VOLUME 96 fL (80-100); MONOCYTES # (AUTO) 0.3 K/uL (0.1-1.0); MONOCYTES % (AUTO) 4.1 % (2.0-9.0); NEUTROPHILS # (AUTO) 6.6 K/uL (1.8-7.7); NEUTROPHILS % (AUTO) 81.3 % (40.0-70.0); PLATELET COUNT (AUTO) 214 K/uL (150-450); RED BLOOD CELL COUNT(AUTO) 4.16 MIL/uL (4.00-5.20); RED CELL DISTRIBUTION WIDTH 13.2 % (11.5-14.5)
[2020-02-07 18:21] LABS: ANION GAP 8 mmol/L (8-16); CALCIUM, TOTAL 8.4 mg/dL (8.8-10.5); CARBON DIOXIDE 27 mmol/L (22-29); CHLORIDE 103 mmol/L (98-107); CREATININE 0.88 mg/dL (0.60-1.30); GLOMERULAR FILTR. RATE CALC > 60 mL/min (>60); GLUCOSE,RANDOM 151 mg/dL (70-110); POTASSIUM 3.4 mmol/L (3.5-5.1); SODIUM SERUM 138 mmol/L (136-145); UREA NITROGEN, BLOOD 12 mg/dL (7-18)
[2020-02-07 18:26] LABS: ALANINE AMINOTRANSFERASE 51 U/L (12-78); ALBUMIN 3.5 g/dL (3.4-5.0); ALKALINE PHOSPHATASE 75 U/L (46-116); ASPARTATE AMINOTRANSFERASE 26 U/L (15-37); BILIRUBIN,TOTAL 0.6 mg/dL (0.1-1.0); LIPASE 100 U/L (73-393); TOTAL PROTEIN, SERUM 7.1 g/dL (6.4-8.2)
[2020-02-07] MEDS ORDERED: DEXAMETHASONE 4 MG TABLET PO ONE (20:15)
[2020-02-07 21:25] LABS: APPEARANCE,URINE CLEAR (CLEAR); BILIRUBIN,URINE NEGATIVE (NEGATIVE); GLUCOSE, URINE (UA) NEGATIVE (NEGATIVE); KETONES,URINE NEGATIVE (NEGATIVE); LEUKOCYTE ESTERASE ,URINE SMALL (NEGATIVE); NITRATE,URINE NEGATIVE (NEGATIVE); OCCULT BLOOD,URINE SMALL (NEGATIVE); PROTEIN,URINE NEGATIVE (NEGATIVE)
[2020-02-07 21:34] LABS: BACTERIA,URINE None Seen /HPF (None Seen)
[2020-02-07 21:35] LABS: SQUAMOUS EPITHELIAL CELL,UR Moderate /LPF (None Seen)
[2020-02-07 21:45] VITALS: BP 116/73
== END 2020-02-07 21:45 | disposition home or self-care (01) ==
LOC: EMS 16:58
DX: J02.9 Acute pharyngitis, unspecified (principal); R05 Cough; R10.9 Unspecified abdominal pain; R42 Dizziness and giddiness; R11.0 Nausea; F41.9 Anxiety disorder, unspecified; I25.10 Atherosclerotic heart disease of native coronary artery without angina pectoris; J44.9 Chronic obstructive pulmonary disease, unspecified; F32.9 Major depressive disorder, single episode, unspecified; E11.9 Type 2 diabetes mellitus without complications; E78.00 Pure hypercholesterolemia, unspecified; F17.210 Nicotine dependence, cigarettes, uncomplicated; Z20.828 Contact with and (suspected) exposure to other viral communicable diseases; Z90.89 Acquired absence of other organs; Z88.5 Allergy status to narcotic agent
CPT/HCPCS: 36415; 80053; 81001; 83690; 84484; 85025; 87430; 93005; 99284; J8540; U0003

== ENCOUNTER 2020-07-20 06:09 | Day surgery (SDC) | payer OTHER ==
[2020-07-17 13:01] LABS: COVID AG,FIA SOURCE NASOPHARYNGEAL
[~2020-07-20] VITALS: Ht 160 cm; Wt 68.0 kg
[~2020-07-20 06:09] MED LIST changes: +MONT-35 PO; -MONT10TA21 PO; +SODIUM CHLORIDE 0.9% 1,000 ML ONE
[2020-07-20] MEDS ORDERED: BENZOCAINE 20% 50 MCG/SPRAY 57 GM TP ONE (06:10)
[2020-07-20] MEDS ORDERED: LIDOCAINE 4% 50 ML SOLUTION TP ONE (06:10)
[2020-07-20] MEDS ORDERED: LIDOCAINE 2% 30 ML JELLY TP ONE (06:10)
[2020-07-20] MEDS ORDERED: ALBUTEROL SULFATE 2.5 MG/0.5 ML NEB SOLUTION NEB ONE (06:10)
[2020-07-20] MEDS: SODIUM CHLORIDE 0.9% 1,000 ML IV ONE (07:10)
[2020-07-20] MEDS ORDERED: MIDAZOLAM HCL 2 MG/2 ML VIAL ONE (07:19)
[2020-07-20] MEDS ORDERED: FentaNYL CITRATE-PF 100 MCG/2 ML VIAL ONE (07:19)
[2020-07-20] MEDS ORDERED: PREDAOS OS (07:21)
[2020-07-20] MEDS ORDERED: DULO30CA96 PO (07:21)
[2020-07-20] MEDS ORDERED: ATOR40TA71 PO (07:21)
[2020-07-20] MEDS ORDERED: KETO.5OS OS (07:21)
[2020-07-20] MEDS ORDERED: MOXI3DRO12 OS (07:21)
[2020-07-20] MEDS ORDERED: MethylPREDNISolone SOD SUCC 125 MG/2 ML VIAL ONE ×2 (09:25→09:37)
[2020-07-20] MEDS: MethylPREDNISolone SOD SUCC 125 MG/2 ML VIAL IVP ONE (09:40)
[2020-07-20] MEDS ORDERED: OXYGEN THERAPY IH SCH (20:00)
== END 2020-07-20 11:05 | disposition home or self-care (01) ==
LOC: SURGERY 06:09
PROVIDERS: ATTEND Internal Medicine Critical Care Medicine
DX: J38.4 Edema of larynx (principal); B37.0 Candidal stomatitis; E78.00 Pure hypercholesterolemia, unspecified; Z20.828 Contact with and (suspected) exposure to other viral communicable diseases
CPT/HCPCS: 31623; 31624; 71045; 87015; 87101; 87206; 87220; 87426; 88108; 88312; C9803; J2250; J2930; J3010; J7030; 87070; J7613; Z7610

== ENCOUNTER 2020-11-07 17:09 | Emergency (ER) | payer OTHER ==
[~2020-11-07] VITALS: Ht 160 cm; Wt 63.6 kg
[~2020-11-07 17:09] MED LIST changes: -ATOR20TA65 PO; +ATOR40TA71 PO; -CITA-144 PO; -CITA10TA99 PO; +DULO30CA96 PO; +KETO.5OS OS; +MOXI3DRO12 OS; +PREDAOS OS; -SODIUM CHLORIDE 0.9% 1,000 ML ONE
[2020-11-07] MEDS ORDERED: DOXY-354 PO (17:15)
[2020-11-07 19:04] LABS: BASOPHILS % (AUTO) 0.5 % (0.0-2.0); EOSINOPHILS % (AUTO) 1.7 % (1.0-6.0); HEMATOCRIT 40.6 % (36-46); HEMOGLOBIN 13.7 g/dL (12.0-16.0); LYMPHOCYTES # (AUTO) 4.2 K/uL (1.0-4.8); LYMPHOCYTES % (AUTO) 45.7 % (22.0-44.0); MEAN CORPUSCULAR HEMOGLOBIN 32.7 pg (26.0-34.0); MEAN CORPUSCULAR HGB CONC 33.8 G/dL (31.0-37.0); MEAN CORPUSCULAR VOLUME 97 fL (80-100); MONOCYTES # (AUTO) 0.5 K/uL (0.1-1.0); MONOCYTES % (AUTO) 5.6 % (2.0-9.0); NEUTROPHILS # (AUTO) 4.3 K/uL (1.8-7.7); NEUTROPHILS % (AUTO) 46.5 % (40.0-70.0); PLATELET COUNT (AUTO) 241 K/uL (150-450); RED BLOOD CELL COUNT(AUTO) 4.21 MIL/uL (4.00-5.20); RED CELL DISTRIBUTION WIDTH 12.9 % (11.5-14.5)
[2020-11-07 19:14] LABS: ANION GAP 7 mmol/L (8-16); CALCIUM, TOTAL 9.1 mg/dL (8.8-10.5); CARBON DIOXIDE 29 mmol/L (22-29); CHLORIDE 104 mmol/L (98-107); GLOMERULAR FILTR. RATE CALC > 60 mL/min (>60); GLUCOSE,RANDOM 119 mg/dL (70-110); POTASSIUM 3.7 mmol/L (3.5-5.1); SODIUM SERUM 140 mmol/L (136-145); UREA NITROGEN, BLOOD 12 mg/dL (7-18)
[2020-11-07 19:20] LABS: ALANINE AMINOTRANSFERASE 39 U/L (12-78); ALBUMIN 3.8 g/dL (3.4-5.0); ALKALINE PHOSPHATASE 83 U/L (46-116); ASPARTATE AMINOTRANSFERASE 21 U/L (15-37); BILIRUBIN,TOTAL 0.5 mg/dL (0.1-1.0); TOTAL PROTEIN, SERUM 7.5 g/dL (6.4-8.2)
[2020-11-07 20:49] VITALS: BP 115/74
== END 2020-11-07 20:49 | disposition home or self-care (01) ==
LOC: EMS 17:12
DX: R07.89 Other chest pain (principal); F41.9 Anxiety disorder, unspecified; F17.210 Nicotine dependence, cigarettes, uncomplicated; I25.10 Atherosclerotic heart disease of native coronary artery without angina pectoris; J44.9 Chronic obstructive pulmonary disease, unspecified; F32.9 Major depressive disorder, single episode, unspecified; E11.9 Type 2 diabetes mellitus without complications; E78.00 Pure hypercholesterolemia, unspecified; Z90.89 Acquired absence of other organs; Z88.5 Allergy status to narcotic agent
CPT/HCPCS: 93005; 99285; 36415-L1; 36415-TC; 71045-TC

== ENCOUNTER 2020-12-15 20:58 | Emergency (ER) | payer OTHER ==
[~2020-12-15] VITALS: Ht 160 cm; Wt 65.9 kg
[~2020-12-15 20:58] MED LIST changes: +DOXY-354 PO
[2020-12-16 01:00] VITALS: BP 112/71
[2020-12-16] MEDS ORDERED: DiphenhydrAMINE HCL 25 MG CAPSULE PO ONE (01:00)
[2020-12-16] MEDS ORDERED: PredniSONE 20 MG TABLET PO ONE (01:00)
== END 2020-12-16 01:17 | disposition home or self-care (01) ==
LOC: EMS 21:00
DX: L50.9 Urticaria, unspecified (principal); T36.0X5A Adverse effect of penicillins, initial encounter; F41.9 Anxiety disorder, unspecified; I25.10 Atherosclerotic heart disease of native coronary artery without angina pectoris; J44.9 Chronic obstructive pulmonary disease, unspecified; F32.9 Major depressive disorder, single episode, unspecified; E11.9 Type 2 diabetes mellitus without complications; E78.00 Pure hypercholesterolemia, unspecified; F17.210 Nicotine dependence, cigarettes, uncomplicated; Z90.89 Acquired absence of other organs; Z88.5 Allergy status to narcotic agent; Y92.89 Other specified places as the place of occurrence of the external cause
CPT/HCPCS: 99283; J7512

== ENCOUNTER 2020-12-16 13:41 | Emergency (ER) | payer OTHER ==
[~2020-12-16] VITALS: Ht 160 cm; Wt 65.9 kg
[2020-12-16] MEDS ORDERED: HydrOXYzine HCL 25 MG TABLET PO ONE (14:30)
[2020-12-16 14:48] LABS: BASOPHILS % (AUTO) 0.2 % (0.0-2.0); EOSINOPHILS % (AUTO) 0.1 % (1.0-6.0); HEMATOCRIT 40.4 % (36-46); HEMOGLOBIN 13.4 g/dL (12.0-16.0); LYMPHOCYTES # (AUTO) 1.1 K/uL (1.0-4.8); LYMPHOCYTES % (AUTO) 10.1 % (22.0-44.0); MEAN CORPUSCULAR HEMOGLOBIN 31.6 pg (26.0-34.0); MEAN CORPUSCULAR HGB CONC 33.1 G/dL (31.0-37.0); MEAN CORPUSCULAR VOLUME 95 fL (80-100); MONOCYTES # (AUTO) 0.3 K/uL (0.1-1.0); MONOCYTES % (AUTO) 2.7 % (2.0-9.0); NEUTROPHILS # (AUTO) 9.8 K/uL (1.8-7.7); PLATELET COUNT (AUTO) 222 K/uL (150-450); RED BLOOD CELL COUNT(AUTO) 4.23 MIL/uL (4.00-5.20); RED CELL DISTRIBUTION WIDTH 13.2 % (11.5-14.5)
[2020-12-16 14:50] LABS: NEUTROPHILS % (AUTO) 86.9 % (40.0-70.0)
[2020-12-16 14:58] LABS: ANION GAP 8 mmol/L (8-16); CALCIUM, TOTAL 8.7 mg/dL (8.8-10.5); CARBON DIOXIDE 28 mmol/L (22-29); CHLORIDE 102 mmol/L (98-107); CREATININE 0.87 mg/dL (0.60-1.30); GLOMERULAR FILTR. RATE CALC > 60 mL/min (>60); GLUCOSE,RANDOM 138 mg/dL (70-110); POTASSIUM 4.1 mmol/L (3.5-5.1); SODIUM SERUM 138 mmol/L (136-145); UREA NITROGEN, BLOOD 14 mg/dL (7-18)
[2020-12-16 15:04] LABS: ALANINE AMINOTRANSFERASE 37 U/L (12-78); ALBUMIN 3.5 g/dL (3.4-5.0); ALKALINE PHOSPHATASE 65 U/L (46-116); ASPARTATE AMINOTRANSFERASE 17 U/L (15-37); BILIRUBIN,TOTAL 0.4 mg/dL (0.1-1.0); TOTAL PROTEIN, SERUM 6.3 g/dL (6.4-8.2)
[2020-12-16 15:41] VITALS: BP 109/81
== END 2020-12-16 16:02 | disposition home or self-care (01) ==
LOC: EMS 13:41
DX: L50.9 Urticaria, unspecified (principal); F41.9 Anxiety disorder, unspecified; I25.10 Atherosclerotic heart disease of native coronary artery without angina pectoris; J44.9 Chronic obstructive pulmonary disease, unspecified; F32.9 Major depressive disorder, single episode, unspecified; E11.9 Type 2 diabetes mellitus without complications; E78.00 Pure hypercholesterolemia, unspecified; F17.210 Nicotine dependence, cigarettes, uncomplicated; Z90.89 Acquired absence of other organs; Z88.5 Allergy status to narcotic agent
CPT/HCPCS: 80053; 85025; 99283

== ENCOUNTER 2021-05-10 23:38 | Emergency (ER) | payer OTHER ==
[~2021-05-10] VITALS: Ht 160 cm; Wt 65.9 kg
[~2021-05-10 23:38] MED LIST changes: +DULO30CA89 PO; -DULO30CA96 PO
[2021-05-11] MEDS ORDERED: GELATIN SPONGE,ABSORBABLE 12-7 MM TP ONE (00:45)
[2021-05-11 01:03] VITALS: BP 109/66
== END 2021-05-11 01:24 | disposition home or self-care (01) ==
LOC: EMS 23:39
DX: S61.233A Puncture wound without foreign body of left middle finger without damage to nail, initial encounter (principal); F41.9 Anxiety disorder, unspecified; I25.10 Atherosclerotic heart disease of native coronary artery without angina pectoris; J44.9 Chronic obstructive pulmonary disease, unspecified; F32.9 Major depressive disorder, single episode, unspecified; E11.9 Type 2 diabetes mellitus without complications; E78.00 Pure hypercholesterolemia, unspecified; F17.210 Nicotine dependence, cigarettes, uncomplicated; Z90.89 Acquired absence of other organs; Z88.5 Allergy status to narcotic agent; W45.8XXA Other foreign body or object entering through skin, initial encounter; Y93.89 Activity, other specified; Y92.89 Other specified places as the place of occurrence of the external cause; Y99.8 Other external cause status
CPT/HCPCS: 99282; Z7502

== ENCOUNTER 2021-07-26 17:22 | Emergency (ER) | payer OTHER ==
[~2021-07-26] VITALS: Ht 160 cm; Wt 66.8 kg
[2021-07-26 18:49] LABS: BASOPHILS % (AUTO) 0.5 % (0.0-2.0); EOSINOPHILS % (AUTO) 1.4 % (1.0-6.0); HEMATOCRIT 37.2 % (36-46); HEMOGLOBIN 12.6 g/dL (12.0-16.0); LYMPHOCYTES # (AUTO) 3.5 K/uL (1.0-4.8); LYMPHOCYTES % (AUTO) 41.8 % (22.0-44.0); MEAN CORPUSCULAR HEMOGLOBIN 31.9 pg (26.0-34.0); MEAN CORPUSCULAR HGB CONC 33.9 G/dL (31.0-37.0); MEAN CORPUSCULAR VOLUME 94 fL (80-100); MONOCYTES # (AUTO) 0.6 K/uL (0.1-1.0); MONOCYTES % (AUTO) 6.7 % (2.0-9.0); NEUTROPHILS # (AUTO) 4.1 K/uL (1.8-7.7); NEUTROPHILS % (AUTO) 49.6 % (40.0-70.0); PLATELET COUNT (AUTO) 235 K/uL (150-450); RED BLOOD CELL COUNT(AUTO) 3.95 MIL/uL (4.00-5.20); RED CELL DISTRIBUTION WIDTH 13.3 % (11.5-14.5)
[2021-07-26 18:57] LABS: ANION GAP 11 mmol/L (8-16); CARBON DIOXIDE 26 mmol/L (22-29); CHLORIDE 107 mmol/L (98-107); GLOMERULAR FILTR. RATE CALC > 60 mL/min (>60); GLUCOSE,RANDOM 116 mg/dL (70-110); POTASSIUM 3.6 mmol/L (3.5-5.1); SODIUM SERUM 144 mmol/L (136-145); UREA NITROGEN, BLOOD 12 mg/dL (7-18)
[2021-07-26 19:05] LABS: ALANINE AMINOTRANSFERASE 39 U/L (12-78); ALBUMIN 3.4 g/dL (3.4-5.0); ALKALINE PHOSPHATASE 79 U/L (46-116); ASPARTATE AMINOTRANSFERASE 21 U/L (15-37); BILIRUBIN,TOTAL 0.2 mg/dL (0.1-1.0); TOTAL PROTEIN, SERUM 6.6 g/dL (6.4-8.2)
[2021-07-26] MEDS ORDERED: MECLIZINE HCL 25 MG TABLET PO ONE (20:00)
[2021-07-26 20:04] VITALS: BP 119/75
== END 2021-07-26 20:48 | disposition home or self-care (01) ==
LOC: EMS 17:32
DX: R00.2 Palpitations (principal); R42 Dizziness and giddiness; E11.9 Type 2 diabetes mellitus without complications; E78.00 Pure hypercholesterolemia, unspecified; J44.9 Chronic obstructive pulmonary disease, unspecified; F41.9 Anxiety disorder, unspecified; F17.210 Nicotine dependence, cigarettes, uncomplicated; Z88.1 Allergy status to other antibiotic agents; Z88.5 Allergy status to narcotic agent; Z79.899 Other long term (current) drug therapy
CPT/HCPCS: 80053; 82962; 84484; 85025; 93005; 99284

== ENCOUNTER 2021-12-18 17:33 | Emergency (ER) | payer OTHER ==
[~2021-12-18] VITALS: Ht 160 cm; Wt 67.3 kg
[~2021-12-18 17:33] MED LIST changes: +DULO-114 PO; -DULO30CA89 PO
[2021-12-18] MEDS ORDERED: CARAL PO (18:11)
[2021-12-18] MEDS ORDERED: BACL10TA PO (18:11)
[2021-12-18] MEDS ORDERED: CLAR250T39 PO (18:11)
[2021-12-18] MEDS ORDERED: AMOX500C2 PO (18:11)
[2021-12-18] MEDS ORDERED: MOME13HF2 IH (18:11)
[2021-12-18] MEDS ORDERED: LIDOCAINE 5% TRANSDERMAL PATCH TD ONE (18:15)
[2021-12-18] MEDS ORDERED: CYCLOBENZAPRINE HCL 10 MG TABLET PO ONE (18:15)
[2021-12-18] MEDS ORDERED: ACETAMINOPHEN 1000 MG/ISO-OSM 100 ML IV ONE (18:15)
[2021-12-18] MEDS ORDERED: KETOROLAC TROMETHAMINE 30 MG/ML VIAL IVP ONE (18:15)
[2021-12-18 18:47] VITALS: BP 135/77
== END 2021-12-18 20:35 | disposition home or self-care (01) ==
LOC: EMS 17:33
DX: M54.16 Radiculopathy, lumbar region (principal); M17.0 Bilateral primary osteoarthritis of knee; K29.70 Gastritis, unspecified, without bleeding; B96.81 Helicobacter pylori [H. pylori] as the cause of diseases classified elsewhere; F41.9 Anxiety disorder, unspecified; I25.10 Atherosclerotic heart disease of native coronary artery without angina pectoris; J44.9 Chronic obstructive pulmonary disease, unspecified; F32.A Depression, unspecified; E11.9 Type 2 diabetes mellitus without complications; E78.00 Pure hypercholesterolemia, unspecified; F17.210 Nicotine dependence, cigarettes, uncomplicated; Z87.19 Personal history of other diseases of the digestive system; Z87.09 Personal history of other diseases of the respiratory system; Z90.49 Acquired absence of other specified parts of digestive tract; Z98.890 Other specified postprocedural states; Z88.5 Allergy status to narcotic agent; Z88.1 Allergy status to other antibiotic agents
CPT/HCPCS: 82962; 96365; 96375; 99284; J0131; J1885; 99283

== ENCOUNTER 2022-02-12 10:57 | Emergency (ER) | payer OTHER ==
[~2022-02-12] VITALS: Ht 160 cm; Wt 66.8 kg
[~2022-02-12 10:57] MED LIST changes: +AMOX500C2 PO; +BACL10TA PO; +CARAL PO; +CLAR250T39 PO; -DOXY-354 PO; +MOME13HF2 IH; -OMEP20CA12 PO; -PREDAOS OS
[2022-02-12 11:09] VITALS: BP 143/87
== END 2022-02-12 12:39 | disposition home or self-care (01) ==
LOC: EMS 10:58
DX: U07.1 COVID-19 (principal); J06.9 Acute upper respiratory infection, unspecified; E11.9 Type 2 diabetes mellitus without complications; E78.00 Pure hypercholesterolemia, unspecified; F32.9 Major depressive disorder, single episode, unspecified; F17.210 Nicotine dependence, cigarettes, uncomplicated; I25.10 Atherosclerotic heart disease of native coronary artery without angina pectoris; F41.9 Anxiety disorder, unspecified; K21.9 Gastro-esophageal reflux disease without esophagitis; J40 Bronchitis, not specified as acute or chronic; J44.9 Chronic obstructive pulmonary disease, unspecified; R06.2 Wheezing; Z82.61 Family history of arthritis; Z88.1 Allergy status to other antibiotic agents; Z88.5 Allergy status to narcotic agent; Z90.49 Acquired absence of other specified parts of digestive tract; Z28.310 Unvaccinated for COVID-19
CPT/HCPCS: 71045; 82962; 99283

== ENCOUNTER 2022-05-14 07:56 | Emergency (ER) | payer MEDICARE, OTHER ==
[~2022-05-14] VITALS: Ht 160 cm; Wt 67.7 kg
[2022-05-14] MEDS ORDERED: PRED-729 PO (08:06)
[2022-05-14] MEDS ORDERED: DOXY-354 PO (08:06)
[2022-05-14] MEDS ORDERED: D-ME473S53 PO (08:06)
[2022-05-14 08:13] LABS: COVID AG,FIA SOURCE NASAL SWAB
[2022-05-14] MEDS ORDERED: ALBUTEROL SULFATE 2.5 MG/0.5 ML NEB SOLUTION NEB ONE (08:30)
[2022-05-14] MEDS ORDERED: IPRATROPIUM BROMIDE 0.5 MG/2.5 ML NEB SOLUTION NEB ONE (08:30)
[2022-05-14 08:33] LABS: INFLUENZA TYPE A NEGATIVE FOR TYPE A (NEGATIVE); INFLUENZA TYPE B NEGATIVE FOR TYPE B (NEGATIVE)
[2022-05-14 08:34] VITALS: BP 129/83
[2022-05-14] MEDS ORDERED: PredniSONE 20 MG TABLET PO ONE (10:00)
[2022-05-14] MEDS ORDERED: PRED-554 PO (10:29)
== END 2022-05-14 10:42 | disposition home or self-care (01) ==
LOC: EMS 08:12
DX: J44.1 Chronic obstructive pulmonary disease with (acute) exacerbation (principal); Z20.822 Contact with and (suspected) exposure to COVID-19; E11.9 Type 2 diabetes mellitus without complications; E78.00 Pure hypercholesterolemia, unspecified; F32.9 Major depressive disorder, single episode, unspecified; F41.9 Anxiety disorder, unspecified; F17.210 Nicotine dependence, cigarettes, uncomplicated; I25.10 Atherosclerotic heart disease of native coronary artery without angina pectoris; K21.9 Gastro-esophageal reflux disease without esophagitis; Z90.49 Acquired absence of other specified parts of digestive tract
CPT/HCPCS: 99284; 71045; 87426; 87804; 94640; J7512; J7613

== ENCOUNTER 2022-08-05 16:59 | Emergency (ER) | payer MEDICARE, OTHER ==
[~2022-08-05] VITALS: Ht 154.9 cm; Wt 72.7 kg
[~2022-08-05 16:59] MED LIST changes: -AMOX500C2 PO; +D-ME473S53 PO; +DOXY-354 PO; +KETO-108 OS; -KETO.5OS OS; +PRED-554 PO; +PRED-729 PO
[2022-08-05 17:03] VITALS: BP 126/79
== END 2022-08-05 19:50 | disposition left against medical advice (07) ==
LOC: EMS 16:59
DX: M79.605 Pain in left leg (principal); M79.604 Pain in right leg; Z53.21 Procedure and treatment not carried out due to patient leaving prior to being seen by health care provider

== ENCOUNTER 2022-09-19 06:05 | Day surgery (SDC) | payer MEDICARE, OTHER ==
[~2022-09-19] VITALS: Ht 160 cm; Wt 67.7 kg
[~2022-09-19 06:05] MED LIST changes: -CLAR250T39 PO; -DOXY-354 PO; -MOXI3DRO12 OS; -PRED-554 PO
[2022-09-19] MEDS ORDERED: LIDOCAINE 2% 11 ML JELLY TP ONE (06:06)
[2022-09-19] MEDS ORDERED: BENZOCAINE 20% 50 MCG/SPRAY 57 GM TP ONE (06:06)
[2022-09-19] MEDS ORDERED: LIDOCAINE 4% 50 ML SOLUTION TP ONE (06:06)
[2022-09-19] MEDS ORDERED: ALBUTEROL SULFATE 2.5 MG/0.5 ML NEB SOLUTION NEB ONE (06:06)
[2022-09-19 06:40] LABS: COVID AG,FIA SOURCE NASAL SWAB
[2022-09-19] MEDS ORDERED: SODIUM CHLORIDE 0.9% 1,000 ML IV ONE (07:00)
[2022-09-19 07:51] LABS: GLUCOMETER DEV NAME(LOC) SDS.; GLUCOSE,POINT OF CARE 97 MG/DL (70-110)
[2022-09-19] MEDS ORDERED: MIDAZOLAM HCL 2 MG/2 ML VIAL ONE (08:55)
[2022-09-19] MEDS ORDERED: FentaNYL CITRATE PF 100 MCG/2 ML VIAL ONE (08:55)
[2022-09-19] MEDS ORDERED: MethylPREDNISolone SOD SUCC 125 MG/2 ML VIAL ONE (09:12)
[2022-09-19] MEDS ORDERED: MethylPREDNISolone SOD SUCC 125 MG/2 ML VIAL IVP ONE (09:30)
== END 2022-09-19 10:50 | disposition home or self-care (01) ==
LOC: SURGERY 06:05
PROVIDERS: ATTEND Internal Medicine Critical Care Medicine
DX: J38.4 Edema of larynx (principal); B37.0 Candidal stomatitis; Z79.899 Other long term (current) drug therapy; Z20.822 Contact with and (suspected) exposure to COVID-19; Z98.890 Other specified postprocedural states
CPT/HCPCS: 31623; 82962; 87101; 87220; 87070; 31624; 94640; 71045; 87015; 87426; 87206; J3010; J2250; J2930; Q9967; C9803; J7613; Z7610

== ENCOUNTER 2023-01-03 15:17 | Emergency (ER) | payer MEDICARE, OTHER ==
[~2023-01-03] VITALS: Ht 160 cm; Wt 65.0 kg
[~2023-01-03 15:17] MED LIST changes: +ALBU18HF12 IH; -ALBU8HFA IH; +MOME13HF12 IH; -MOME13HF2 IH
[2023-01-03] MEDS ORDERED: DULO-113 PO (15:30)
[2023-01-03] MEDS ORDERED: GABA-1216 PO (15:30)
[2023-01-03] MEDS ORDERED: PREG25CA18 PO (15:30)
[2023-01-03] MEDS ORDERED: ATOR40TA28 PO (15:30)
[2023-01-03 15:41] LABS: GLUCOMETER DEV NAME(LOC) ERT.5; GLUCOSE,POINT OF CARE 127 MG/DL (70-110)
[2023-01-03] MEDS ORDERED: KETOROLAC TROMETHAMINE 30 MG/ML VIAL IM ONE (18:30)
[2023-01-03] MEDS ORDERED: ACET-2080 PO (18:31)
[2023-01-03] MEDS ORDERED: FLUT1BLS15 IH (18:37)
[2023-01-03] MEDS ORDERED: FAMO20 PO (18:37)
[2023-01-03] MEDS ORDERED: CHOL200059 PO (18:37)
[2023-01-03] MEDS ORDERED: PYRI-14 PO (18:37)
[2023-01-03] MEDS ORDERED: FOLI-130 PO (18:37)
[2023-01-03] MEDS ORDERED: BACL20TA PO (18:37)
[2023-01-03] MEDS ORDERED: FLUT16SP NASAL (18:37)
[2023-01-03] MEDS ORDERED: FLUO-341 PO (18:37)
[2023-01-03 18:54] VITALS: BP 119/72
== END 2023-01-03 18:55 | disposition home or self-care (01) ==
LOC: EMS 15:18
DX: M79.10 Myalgia, unspecified site (principal); F41.9 Anxiety disorder, unspecified; M19.90 Unspecified osteoarthritis, unspecified site; I25.10 Atherosclerotic heart disease of native coronary artery without angina pectoris; J44.9 Chronic obstructive pulmonary disease, unspecified; F32.A Depression, unspecified; E11.9 Type 2 diabetes mellitus without complications; K21.9 Gastro-esophageal reflux disease without esophagitis; E78.00 Pure hypercholesterolemia, unspecified; F17.210 Nicotine dependence, cigarettes, uncomplicated; Z90.89 Acquired absence of other organs
CPT/HCPCS: 99283; 82962; 96372; J1885

== ENCOUNTER 2023-02-18 16:04 | Emergency (ER) | payer MEDICARE, OTHER ==
[~2023-02-18] VITALS: Ht 157.5 cm; Wt 64.5 kg
[~2023-02-18 16:04] MED LIST changes: +ACET-2080 PO; +ATOR40TA28 PO; -ATOR40TA71 PO; -BACL10TA PO; +BACL20TA PO; -CARAL PO; +CHOL200059 PO; -D-ME473S53 PO; +DULO-113 PO; -DULO-114 PO; +FAMO20 PO; +FLUO-341 PO; +FLUT16SP NASAL; +FLUT1BLS15 IH; +FOLI-130 PO; -KETO-108 OS; -MOME13HF12 IH; -PRED-729 PO; +PREG25CA18 PO; +PYRI-14 PO
[2023-02-18 16:07] VITALS: TEMP 98.3
[2023-02-18 17:24] LABS: BASOPHILS % (AUTO) 0.6 % (0.0-2.0); EOSINOPHILS % (AUTO) 0 % (1.0-6.0); HEMATOCRIT 40.9 % (36-46); HEMOGLOBIN 13.7 g/dL (12.0-16.0); LYMPHOCYTES % (AUTO) 15.9 % (22.0-44.0); MEAN CORPUSCULAR HEMOGLOBIN 32.8 pg (26.0-34.0); MEAN CORPUSCULAR HGB CONC 33.5 G/dL (31.0-37.0); MEAN CORPUSCULAR VOLUME 98 fL (80-100); MONOCYTES # (AUTO) 0.4 K/uL (0.1-1.0); MONOCYTES % (AUTO) 3.2 % (2.0-9.0); NEUTROPHILS # (AUTO) 9.8 K/uL (1.8-7.7); NEUTROPHILS % (AUTO) 80.3 % (40.0-70.0); PLATELET COUNT (AUTO) 229 K/uL (150-450); RED BLOOD CELL COUNT(AUTO) 4.17 MIL/uL (4.00-5.20); RED CELL DISTRIBUTION WIDTH 13.9 % (11.5-14.5)
[2023-02-18 17:26] LABS: ANION GAP 11 mmol/L (8-16); CALCIUM, TOTAL 8.9 mg/dL (8.8-10.5); CARBON DIOXIDE 25 mmol/L (22-29); CHLORIDE 100 mmol/L (98-107); GLOMERULAR FILTR. RATE CALC > 60 mL/min (>60); GLUCOSE,RANDOM 142 mg/dL (70-110); POTASSIUM 4.1 mmol/L (3.5-5.1); SODIUM SERUM 136 mmol/L (136-145)
[2023-02-18 17:31] LABS: COVID AG,FIA SOURCE NASOPHARYNGEAL
[2023-02-18 17:32] LABS: ALANINE AMINOTRANSFERASE 34 U/L (12-78); ALBUMIN 3.7 g/dL (3.4-5.0); ALKALINE PHOSPHATASE 82 U/L (46-116); ASPARTATE AMINOTRANSFERASE 18 U/L (15-37); BILIRUBIN,TOTAL 0.7 mg/dL (0.1-1.0); LIPASE 85 U/L (73-393); TOTAL PROTEIN, SERUM 7.1 g/dL (6.4-8.2)
[2023-02-18] MEDS ORDERED: BENZ-227 PO (18:15)
[2023-02-18 18:24] VITALS: BP 124/76; PULSE 92; RESP 16
== END 2023-02-18 18:25 | disposition home or self-care (01) ==
LOC: EMS 16:06
DX: J44.1 Chronic obstructive pulmonary disease with (acute) exacerbation (principal); R07.89 Other chest pain; E78.00 Pure hypercholesterolemia, unspecified; F41.9 Anxiety disorder, unspecified; E11.9 Type 2 diabetes mellitus without complications; I25.10 Atherosclerotic heart disease of native coronary artery without angina pectoris; F32.A Depression, unspecified; K21.9 Gastro-esophageal reflux disease without esophagitis; F17.210 Nicotine dependence, cigarettes, uncomplicated; Z90.49 Acquired absence of other specified parts of digestive tract; Z88.5 Allergy status to narcotic agent; Z88.8 Allergy status to other drugs, medicaments and biological substances; Z20.822 Contact with and (suspected) exposure to COVID-19
CPT/HCPCS: 71045; 80053; 83690; 84484; 85025; 93005; 99285; 36415-L1; 36415-TC

== ENCOUNTER 2023-06-29 09:58 | Emergency (ER) | payer OTHER ==
[~2023-06-29] VITALS: Ht 152.4 cm; Wt 54.5 kg
[~2023-06-29 09:58] MED LIST changes: -ACET-2080 PO; +BENZ-227 PO; -PREG25CA18 PO; +PREG25CA19 PO
[2023-06-29 10:08] VITALS: TEMP 98.6
[2023-06-29] MEDS: CloNIDine HCL 0.1 MG TABLET PO ONE (11:47)
[2023-06-29] MEDS: HYDROCHLOROTHIAZIDE 25 MG TABLET PO ONE (11:47)
[2023-06-29 12:26] VITALS: BP 136/95; PULSE 89; RESP 18
[2023-06-29] MEDS ORDERED: HYDR25TA2 PO (12:36)
== END 2023-06-29 13:03 | disposition home or self-care (01) ==
LOC: EMS 10:06
DX: I10 Essential (primary) hypertension (principal); F41.9 Anxiety disorder, unspecified; M19.90 Unspecified osteoarthritis, unspecified site; J44.9 Chronic obstructive pulmonary disease, unspecified; F32.A Depression, unspecified; E11.9 Type 2 diabetes mellitus without complications; E78.00 Pure hypercholesterolemia, unspecified; F17.210 Nicotine dependence, cigarettes, uncomplicated; Z90.49 Acquired absence of other specified parts of digestive tract; Z98.890 Other specified postprocedural states
CPT/HCPCS: 82962; 99283